=== PATIENT | female | born 2000 | race Caucasian/White ===

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

== ENCOUNTER 2023-08-27 18:18 | Emergency (ER) | payer MEDICAID, SELFPAY ==
[2023-08-27] VITALS (9 sets, daily range): BP systolic 118–124; BP diastolic 70; PULSE 63–92; RESP 14–23; TEMP 36.9; O2SAT 98
--- NOTE | 2023-08-27 18:15 | RT.EKG_ITS ---
APPROVED REPORT Exam: Resting ECG Reason for Exam: CHEST PAIN Patient Location: E HR:84 bpm ECG Measurements Heart Rate 84 AXIS KS 141 P 29 QRSd 88 QRS 67 QT 357 T -22 QTc 422 Conclusion Sinus rhythm...normal P axis, V-rate 60- 99 Nonspecific T abnormalities, diffuse leads...T <-0.10mV, ant/lat/inf NSR, T wave inversions in II, aVF, V1-V-4, no STEMI, no significant changes from previous.
--- NOTE | 2023-08-27 18:31 | W.ED.GENAD ---
Discharge Plan Disposition Patient Disposition: Home Discharge Details Clinical Impression: Chest pain in adult, Abnormal EKG Primary Care Provider: Stefan Torrez ED Provider: Maya Nichole Home Meds and New Rx's Prescriptions: No Action drospirenone-ethinyl estradiol 3-0.02 mg tablet 1 tab PO DAILY Patient Comments: TAKE 1 TABLET BY MOUTH DAILY sucralfate 1 gram tablet 1 g PO DAILY PRN Patient Comments: TAKE ONE TABLET BY MOUTH FOUR TIMES A DAY venlafaxine 37.5 mg Tablet Extended Release 24hr 75 mg PO DAILY Discharge Instructions Instructions: Chest Pain (ED), GERD (Gastroesophageal Reflux Disease) (ED) Additional Instructions: 1. Try taking Mylanta or another voyc-heh-udgraoo liquid and acid as needed for discomfort. You may also continue daia-xni-wechjng omeprazole as directed. 2. You should receive a call from cardiology with appointment for a follow-up of your abnormal EKG. 3. Call your primary care provider in the morning and tell them about today's visit you should make an appointment for follow-up and recheck. 4. Return to the emergency department for any new or worrisome symptoms or if the symptoms persist and last longer than a few seconds or for any concerns. 5. Avoid alcohol, caffeine and nonsteroidal anti-inflammatories such as ibuprofen which may aggravate reflux. You may take acetaminophen (Tylenol) as needed for pain. Stand Alone Forms: Work Release Discharge Data Discharge Physician: Maya Nichole Medical Decision Making This is a healthy 23-year-old female with no significant cardiac risk factors who presents with 2 days of intermittent substernal chest pressure that lasts a few seconds. She has an abnormal EKG but it is unchanged from her previous EKG. She has a reassuring physical exam and vital signs. She tells me she has no prior similar episodes but I note that she is on Carafate which suggest she may have some history of gastritis or reflux. She is also complaining of shortness of breath. I will obtain blood work including COVID flu and RSV, D-dimer, electrolytes, cardiac enzymes and a chest x-ray. I do not think this is cardiac since she does not use cocaine and has no risk factors. She does not have hyperlipidemia, diabetes, hypertension or family history. She took an yyvm-nqh-poyezxu omeprazole but that I would not expect to work instantaneously. She tells me she was supposed to follow-up with cardiology having been told in the past that she had an abnormal EKG but never did follow-up. If her work-up is negative I will likely discharge her home with outpatient follow-up with her PCP and cardiology for an outpatient echocardiogram. Differential Diagnosis Differential Diagnosis: ACS, GERD, viral URI, pneumonia, musculoskeletal chest pain, esophagitis Medical Records Medical records reviewed: Yes I reviewed the patient's medical records. Imaging Data Radiologic Study: Imaging: X-Ray (Chest x-ray) Radiologist's impression: V rad impression no acute findings. ECG Data Attestation: I personally reviewed and interpreted this ECG (s) as follows: Prior ECG tracings: available for review HPI General Date/Time Provider Initiated Documentation: 08/27/23 18:31. Limitations to Documentation: no limitations. Information obtained by: patient. HPI Narrative: Time seen was 1858 in bed 7. The patient is a healthy 23-year-old zujsk-hwjy-fyslnfnw female with history of anxiety and migraines who presents with substernal chest pain which she noted on waking yesterday morning. She describes the pain as pressure-like as though someone was sitting on her chest. The pain is intermittent and comes at random intervals and lasts 5 seconds. She tells me the pain is 7 out of 10 in severity and radiates to the right shoulder. She also endorses associated shortness of breath that she noted with walking. She denies any aggravating or alleviating factors. She denies using any cocaine. She does not smoke but she does vape and uses marijuana. She denies any cough fever or rhinorrhea. She does state that she has had some intermittent sweats. She does not have any history of diabetes hypertension or hyperlipidemia. She has no first-degree relatives with a history of early NH. She denies any leg pain or swelling but states she had numbness in both legs and a little bit in her hands. 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 She took an zycn-lyj-mwsgkib omeprazole at 1 PM without any relief. She has been told in the past that she had an abnormal EKG but did not follow-up with cardiology. She denies any abdominal pain leg pain or swelling or URI symptoms. She denies any previous similar episodes. Related Data Home Medications Medication Instructions Recorded Confirmed venlafaxine 37.5 mg 75 mg PO DAILY 10/03/19 08/27/23 tablet,extended release 24 hr drospirenone 3 mg-ethinyl 1 tab PO DAILY 08/27/23 08/27/23 estradiol 0.02 mg tablet sucralfate 1 gram tablet 1 g PO DAILY PRN 08/27/23 08/27/23 Allergies Allergy/AdvReac Type Severity Reaction Status Date / Time No Known Allergies Allergy Unverified 08/27/23 19:22 General Stated Complaint: Chest Pain BRANDY: 3 Review of Systems Narrative: see hpi PFSH All Active Problems (Updated 08/27/23 @ 20:57 by Maya Nichole MD) Abnormal EKG (Acute) Chest pain in adult (Acute) Medical History Anxiety Migraine Migraine with aura with seizure like components Surgical History Lymph node disorder Lymph node resection History of tonsillectomy Social History Smoking/Tobacco Use Status: Never Smoking risk assessment performed?: Yes Alcohol Intake: never Substance use type: marijuana Do you feel safe at home: Yes Do you feel safe in your relationship?: Yes Exam Const General: cooperative, healthy appearing, comfortable, no acute distress, well developed, well groomed and well hydrated Nutritional Appearance: average body habitus and well nourished Orientation: alert, awake and oriented x3 HENMT Head: normal to inspection, normocephalic and atraumatic Ears: hearing grossly normal bilaterally and external ears normal General nose exam: external nose normal, nares normal and no nasal discharge Face and sinus: normal facial exam, sinuses nontender and face symmetric Mouth: oral mucosae normal, lip normal, tongue normal, oropharynx normal, moist mucous membranes and other (Normal phonation. The patient is handling secretions.) Throat: posterior oropharynx normal and uvula midline Eyes General: appearance normal, both eyes and all related structures Eyelids: eyelids normal Conjunctivae: conjunctivae normal Sclera: sclerae normal Cornea: corneas normal Pupils: PERRL EOM: EOM intact bilaterally and No nystagmus Neck Neck: normal visual inspection, full ROM, no lymphadenopathy, no meningeal signs, trachea midline and supple Lymphatic: no lymphadenopathy noted Chest Chest: normal inspection of the chest Resp Effort & Inspection: normal respiratory effort, able to speak in complete sentences, no audible wheezes, no nasal flaring, no respiratory distress, no retractions, no stridor, not tachypneic, no tracheal deviation, no use of accessory muscles, No prolonged expiratory phase and other (Normal inspiratory to expiratory ratio.) Auscultation: clear to auscultation bilaterally, no rales, no rhonchi, no wheezes and no rubs Tactile Fremitus: tactile fremitus absent Cardio Jugular venous pressure: no JVD Palpation: normal PMI Rate: regular rate Rhythm: regular rhythm Heart Sounds: S1 normal, S2 normal, no gallops, no murmurs and no rubs GI Inspection: normal to inspection and non-distended Palpation: soft, no hepatosplenomegaly, no guarding and nontender Percussion: normal to percussion Auscultation: normal bowel sounds General: No CVA tenderness Back/Spine/Pelvis Back: no CVA tenderness and No back tenderness Cervical Spine: normal cervical lordosis, cervical ROM normal, No cervical muscular tenderness, No pain with cervical ROM, No cervical spinal tenderness and No step off deformity Thoracic/Lumbar Spine: thoracic and lumbar spine normal to inspection, No thoracic spinal tenderness and No lumbar spinal tenderness Pelvis: no pain with anterior-posterior compression and no pain with lateral compression Skin General skin exam: no rashes or lesions noted, turgor normal, no petechiae, no purpura and other (Skin is normal for ethnicity.) Lesions: no lesions Rashes: no rashes Trauma: no lacerations or abrasions Neuro General: patient alert, patient awake, patient oriented x3, moves all extremities, no meningeal signs, no focal motor deficits and CN's II-XI intact bilaterally Cranial Nerves: CN's II-XI intact bilaterally, PERRL, accommodation normal, EOM intact bilaterally, no nystagmus, facial strength normal, tongue midline, hearing normal and no nystagmus Cognition: normal cognition Speech: speech normal Gait: normal gait Motor: muscle tone normal throughout and strength 5/5 throughout Sensory Exam: no sensory deficits noted Extrem General: normal to inspection, full ROM, capillary refill normal, no clubbing, cyanosis or edema and no calf tenderness Psych Appearance: grossly normal Affect: normal affect Attitude: cooperative Thought Process: normal Thought Content: normal Insight: insight good Judgment: judgment good Other: The patient appears to have capacity make medical decisions. Course 2043 PM: I have reviewed the patient's blood work labs and EKG. I have discussed the findings with the patient. I have advised her to take a liquid antacid and will order 30 mL of Mylanta to take now. She requested a note for work. I have asked for a cardiology consult for her abnormal EKG Vital Signs Vital signs: Vital Signs Temperature 36.9 C 08/27/23 18:21 Pulse 92 H 08/27/23 18:21 Respiratory Rate 16 08/27/23 18:21 Blood Pressure 124/70 08/27/23 18:21 Pulse Oximetry 98 08/27/23 18:21 Temperature 36.9 C 08/27/23 18:21 Temperature Source Oral 08/27/23 18:21 Pulse 92 H 08/27/23 18:21 Respiratory Rate 16 08/27/23 18:24 Respiratory Effort Normal, Non-Labored 08/27/23 18:24 Respiratory Depth Normal 08/27/23 18:24 Respiratory Pattern Normal 08/27/23 18:24 Blood Pressure 124/70 08/27/23 18:21 Pulse Oximetry 98 08/27/23 18:21 Oxygen Delivery Method Room Air 08/27/23 18:21 Oxygen Flow Rate 0 08/27/23 18:21 Pain Level 5 08/27/23 18:24 Lab/Test Results Lab/Test Results: Slight leukocytosis, normal CMP, negative COVID influenza and RSV
--- NOTE | 2023-08-27 19:00 | DI.RAD_ITS ---
Exam(s) XR CHEST 2V PA LATERAL EXAM: XR CHEST 2V PA LATERAL CLINICAL HISTORY: chest pain and shortness of breath. TECHNIQUE: 2D digital imaging was performed. COMPARISON: CR,XR XR CHEST 2V PA LATERAL from 06/21/2020 FINDINGS: 2 views: Heart size is normal. The mediastinum is not widened. Lungs are clear. No infiltrates nor pleural effusions. IMPRESSION: No acute pulmonary findings. DATA REPOSITORY: RADIATION DOSE DELIVERED:
[2023-08-27 19:15] LABS: Abs Immature Grans 0.02 10^3/uL (0.0-0.06); Absolute Basophil Count 0.03 10^3/uL (0.0-0.2); Absolute Eosinophil Count 0.07 10^3/uL (0.0-0.7); Absolute Lymphocyte Count 3.27 10^3/uL (1.2-3.4); Absolute Monocyte Count 0.72 10^3/uL (0.1-0.8); Absolute Neutrophil Count 6.82 10^3/uL (1.2-6.7); Basophils % 0.3; Eosinophils % 0.6; HCT 37.4 % (36.0-46.0); HGB 12.3 g/dL (11.2-15.7); Immature Grans % 0.2; Lymphocytes % 29.9; MCH 29.3 pg (27.0-33.0); MCHC 32.9 % (32.0-36.0); MCV 89 fL (80-95); Monocytes % 6.6; Neutrophils % 62.4; Platelet Count 235 10^3/uL (130-400); RDW 12.8 % (11.7-14.6); RDW-SD 41.6 fL; WBC 10.93 10^3/uL (4.4-10.8)
[2023-08-27] MEDS: ACETAMINOPHEN 1,000 MG/100 ML BTL 400 MG IVPB (19:21)
[2023-08-27 19:39] LABS: ALT 29 U/L (14-59); AST 18 U/L (15-37); Albumin 3.5 g/dL (3.4-5.0); Alkaline Phosphatase 69 U/L (46-116); Anion Gap 7.3 mmol/L (3-11); BUN 11 mg/dL (7-18); Bilirubin, Total 0.4 mg/dL (0.2-1.0); CO2 25.7 mmol/L (21.0-32.0); CREATININE 0.8 mg/dL (0.55-1.02); Calcium 9.3 mg/dL (8.5-10.1); Chloride 106 mmol/L (98-107); Estimated GFR 106.77 (mL/min/1.73m2); Glucose 86 mg/dL (74-106); Magnesium 1.9 mg/dL (1.8-2.4); Potassium 3.5 mmol/L (3.5-5.1); Sodium 139 mmol/L (136-145); Total Protein 6.9 g/dL (6.4-8.2)
[2023-08-27 19:40] LABS: Troponin I < 50 ng/L (<or=60)
--- NOTE | 2023-08-27 19:56 | DI.VRAD_ITS ---
PROCEDURE INFORMATION: Exam: XR Chest Exam date and time: 08/27/2023 7:25 PM Age: 23 years old Clinical indication: Shortness of breath and other: Chest pain, SOB TECHNIQUE: Imaging protocol: Radiologic exam of the chest. Views: 2 views. COMPARISON: CR XR CHEST 2V PA LATERAL 06/21/2020 12:43 AM FINDINGS: Lungs: Unremarkable. No consolidation. Pleural spaces: Unremarkable. No pleural effusion. No pneumothorax. Heart/Mediastinum: Unremarkable. No cardiomegaly. Bones/joints: Unremarkable. IMPRESSION: No acute findings. Dictated and Authenticated by: Helder Bermudez MD. Ordering:MARIAM Trejo MD
[2023-08-27 19:58] LABS: D-Dimer 271 ng/mlFEU (<500)
[2023-08-27 20:10] LABS: COVID-19 PCR Negative (Negative); Influenza A PCR Negative (Negative); Influenza B PCR Negative (Negative); RSV PCR Negative (Negative)
[2023-08-27 20:15] LABS: Source Nasopharynx
--- NOTE | 2023-08-27 20:47 | NUR.NOTE ---
Pt placed on care management referral list for Cardiology abnormal EKG to be seen within 2 weeks.
[2023-08-27] MEDS: Mylanta Suspension 30 ML CUP PO (20:57)
== END 2023-08-27 21:03 | disposition home or self-care (01) ==
PROVIDERS: Emergency Provider Emergency Medicine Emergency Medical Services; PCP Nurse Practitioner Family
DX: R07.9 Chest pain, unspecified (principal); R94.31 Abnormal electrocardiogram [ECG] [EKG]; K21.9 Gastro-esophageal reflux disease without esophagitis; D72.829 Elevated white blood cell count, unspecified; Z20.822 Contact with and (suspected) exposure to COVID-19
CPT/HCPCS: 80053; 81025; 87637; 93005; 96374; 99283; 71046; 83735; 84484; 85025; 85379; 93010; J0131